=== PATIENT | male | born 1950 | race Caucasian/White ===

== ENCOUNTER 2020-11-13 09:11 | Inpatient (IN) ==
[2020-11-13] MEDS ORDERED: hydrALAZINE 25 MG TABLET PO ONE (10:29)
--- NOTE | 2020-11-13 10:32 | Emergency Department Note ---
HPI General Chief complaint: Blood Pressure Problem Stated complaint: blood pressure issue Time Seen by Provider: 11/13/20 10:15 Source: patient Mode of arrival: ambulatory Limitations: no limitations History of Present Illness HPI Narrative: Narrative: Presents to room T8 for evaluation of headache with elevated blood pressure. The patient reports that he was not diagnosed with hypertension until he recently had a procedure for hiatal hernia. He states post procedure he was noted to have elevated blood pressure and he was placed on amlodipine. He states approximately 1 month ago his PCP told him he no longer needed to take the medication as his blood pressure was well controlled. The patient did record elevated blood pressure approximately 2 to 3 weeks ago but denied any symptoms associated with it at that time. He states over the last 3 days he has had a moderate diffuse dull headache. He states this is not the worst headache of his life. This is not thunderclap onset. He denies any visual changes. He denies any strokelike symptoms. No weakness, no numbness, no loss of coordination or gait disturbance. He denies any chest pain or shortness of breath. No nausea or vomiting. No abdominal pain. No hematuria or flank pain. Symptoms are constant. He denies any exacerbating or allevia ting factors. Related Data Home Medications Medication Instructions Recorded Confirmed clobetasol 0.05 % topical ointment TOPICAL 30 Days #60 02/20/17 10/23/20 cetirizine 10 mg tablet 10 mg PO QDAY PRN 08/10/20 10/23/20 famotidine 20 mg tablet 20 mg PO QDAY 08/10/20 10/23/20 pravastatin 20 mg tablet 20 mg PO QDAY tab 08/10/20 10/23/20 fluocinonide 0.05 % topical TOPICAL 09/19/20 10/23/20 ointment fluticasone propionate 50 2 spray INTRANASAL QDAY g 09/19/20 10/23/20 mcg/actuation nasal spray,suspension ketoconazole 2 % shampoo TOPICAL 09/19/20 10/23/20 Allergies Allergy/AdvReac Type Severity Reaction Status Date / Time Banana Allergy Intermediate Vomiting Verified 11/13/20 09:15 Review of Systems ROS ROS Narrative: Narrative: All systems ED: reviewed and negative except as stated. PFSH Narrative Patient History Narrative: Narrative: Medical/Surgical/Family History All Active Problems (Updated 11/13/20 @ 13:12 by Doug Tan MD) Hypertensive emergency (Acute) Headache (Acute) Cough (Acute) Paraesophageal hernia (Acute) Advanced directives, counseling/discussion (Acute) Medicare welcome visit (Acute) History of esophagogastroduodenoscopy (Chronic ~04/17/20) GERD (gastroesophageal reflux disease) (Chronic) Viral URI with cough (Chronic) B12 deficiency (Chronic) Encounter for Health Maintenance Examination in Adult (Chronic) Limb pain (Chronic) Osteoarthritis (Chronic 11/04/14) Mitral valve regurgitation (Chronic) Hyperlipidemia (Chronic) Inguinal hernia (Chronic) Hearing loss (Chronic) Endocarditis (Chronic) Personal history of colonic polyps (Chronic 07/01/08) Blindness of right eye (Chronic) Pneumonia (Chronic) GERD (gastroesophageal reflux disease) (Chronic) Medical History Advanced directives, counseling/discussion Blindness of right eye right eye blindness & surgery - old trauma Cough Endocarditis 03/18/05--[facility]--mitral valve repair with a sliding leaflet reattachment & a 28 Josh annulpalsty ring. Echo 04/30/05; Echo repeated 11/27/06 with no major changes noted; Echo repeated 01/18/08--stable--Dr. Schmitt. GERD (gastroesophageal reflux disease) GERD (gastroesophageal reflux disease) Hearing loss Bilateral hearing aids. History of tobacco use 1960 Chewing--discontinuation approximately 2005. Hyperlipidemia Diet and Lipitor. Inguinal hernia 11/2009--Left inguinal hernia repair--Dr. Garay. Previous hernia surgery 1974. Limb pain 06/2010--Right knee/leg vague aching/swelling--negative venous doppler. Swelling probably secondary to previous Zarate's cyst. Medicare welcome visit Mitral valve regurgitation endocarditis 205,robotic valve replacement, echo 2013 Osteoarthritis (11/04/14) Paraesophageal hernia Personal history of colonic polyps (07/01/08) 07/01/08--Dr. Cottrell--NO POLYPS--normal colon; flat prostate. 10-year sequence. Pneumonia Psoriasis 07/2011 Rash over left leg appearing psoriasis-like--Lidex Cream. 2006-- eczema eruption over knees; several other nonspecific lesions frozen through Dr. Ravi. Surgical History History of appendectomy 1974 History of colonoscopy (07/01/08) 07/01/08--Dr. Cottrell--NO POLYPS--normal colon; flat prostate. 10-year sequence. History of esophagogastroduodenoscopy (~04/17/20) History of eye surgery Right eye blindness-old trauma. History of inguinal hernia repair 11/2009--left inguinal hernia repair--Dr. Garay. Previous hernia surgery 1974. History of knee surgery 1974 History of mitral valve replacement (03/18/05) mitral regurgitationswith endocarditis, post repair with a sliding leaflet re-attachment and a 28 josh annuloplasty ring. Echo 04/30/05. No eviden ce of coronary disease by catheterization with normal left ventricular systolic function. Postoperative atrial fibrillation which resolved without recurrence. Family History Unknown Essential hypertension Seizures Tuberculosis, pulmonary Brother Acute myocardial infarction 2 brothers of [place] at age 56 & 62 and sister mid-60's Sister Acute myocardial infarction Social History Smoking Status: Former smoker Alcohol Intake Frequency: a few times a week Substance Use: does not use Exam Narrative Narrative: Narrative: General Limitations: no limitations General appearance: Present alert and in no apparent distress Head Head: Present atraumatic, normocephalic and normal inspection Eye Eye: Present normal appearance, PERRL and EOMI; Absent conjunctival injection ENT ENT: Present normal exam and mucous membranes moist Neck Neck: Present normal inspection and trachea midline Respiratory Respiratory: Present normal lung sounds bilaterally; Absent respiratory distress Cardiovascular Cardiovascular: Present regular rate, normal rhythm and normal heart sounds Adbominal Abdominal: Present soft; Absent distention, tenderness, guarding and rebound Extremities Extremities: Present normal inspection; Absent tenderness Back Back: Present normal inspection; Absent tenderness Neurological Neurological: Present alert, oriented X3 and CN II-XII intact; Absent motor sensory deficit Psychiatric Psychiatric: Present normal affect and normal mood Skin Skin: Present warm (WNL) and dry; Absent rash Course Vital Signs Vital signs: Vital Signs Temperature 97.4 F 11/13/20 09:12 Pulse Rate 71 11/13/20 09:12 Respiratory Rate 16 11/13/20 09:12 Blood Pressure 193/104 11/13/20 09:12 Pulse Oximetry (%) 98 11/13/20 09:12 Temperature 97.4 F 11/13/20 09:12 Pulse Rate 75 11/13/20 12:41 Respiratory Rate 24 H 11/13/20 12:41 Blood Pressure 181/102 11/13/20 12:30 Pulse Oximetry (%) 97 11/13/20 12:41 MDM MDM Narrative Medical decision making narrative: Narrative: Lab Data Result diagrams: 11/13/20 11:00 11/13/20 11:00 Labs: Lab Results 11/13/20 11/13/20 11/13/20 Range/Units 11:00 11:00 11:00 WBC 6.3 (4.5-11.0) K/mcL RBC 4.86 (4.50-5.90) M/mcL Hgb 15.5 (13.5-16.5) g/dL Hct 45.0 (41.0-55.0) % MCV 92.6 (80.0-100.0) fL MCH 31.9 (26.0-34.0) pg MCHC 34.4 (31.0-36.0) g/dL RDW 12.6 (11.5-14.5) % Plt Count 276 (140-440) K/mcL MPV 10.8 H (7.4-10.4) fL Neut % (Auto) 81.3 H (38.0-78.0) % Lymph % (Auto) 9.9 L (15.0-49.0) % [place] % (Auto) 8.4 (1.0-12.0) % Eos % (Auto) 0.2 (0.0-7.0) % Baso % (Auto) 0.2 (0.0-2.0) % Lymph # (Auto) 0.62 L (1.50-4.80) K/mcL [place] # (Auto) 0.53 (0.10-0.90) K/mcL Eos # (Auto) 0.01 (0.00-0.70) K/mcL Baso # (Auto) 0.01 (0.00-0.20) K/mcL Absolute Neutrophils 5.12 (1.80-8.00) K/mcL Sodium 131 L (133-145) mmol/L Potassium 3.5 (3.3-5.1) mmol/L Chloride 95 L (96-108) mmol/L Carbon Dioxide 26 (22-30) mmol/L Anion Gap 10.0 (8.0-16.0) BUN 14 (8-23) mg/dL Creatinine 0.9 (0.7-1.2) mg/dL GFR Calculation 86 Glucose 104 (70-105) mg/dL Calcium 9.5 (8.6-10.4) mg/dL Total Bilirubin 0.6 (0.1-1.0) mg/dL AST 14 (<40) U/L ALT 13 (<40) U/L Alkaline Phosphatase 84 (39-117) U/L Troponin T < 0.01 (<0.03) ng/mL Total Protein 7.4 (5.9-8.4) gm/dL Albumin 4.3 (3.2-5.2) gm/dL Globulin 3.1 (2.2-3.7) gm/dL Albumin/Globulin Ratio 1.4 (1.0-2.3) Radiology Data Radiology results reviewed: Yes I reviewed the patient's radiology results. 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 This time is excluding time spent on separately billable procedures. Patient presents for evaluation of symptomatic headache with hypertension. 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 CT scan of the head shows no evidence of intracranial hemorrhage. The patient's labs are otherwise unremarkable. EKG is normal. Chest x-ray is unremarkable. The patient was initially treated with oral hydralazine however there was no significant improvement in symptoms or blood pressure. The patient received 2 sequential doses of labetalol IV again with no significant symptomatic or blood pressure improvement. This time the patient was started on a nicardipine drip. I discussed the case with the admitting hospitalist, Dr. Sloan. Discharge Plan Patient/Caregiver Discharge Instructions Pt seen by COMMUNITY SPORTS COORDINATOR/PA only: No Clinical Impression: Hypertensive emergency, Headache Patient Disposition: Xfer As Inpt ([facility]) Follow up with: Juan Ramon Arana MD, FAAFP [Primary Care Provider] - Prescriptions: No Action fluticasone furoate-vilanterol [Breo Ellipta] 100-25 mcg/dose blister with device RF: 0 pravastatin 20 mg tablet 20 mg PO QDAY RF: 0 cetirizine [All Day Allergy (cetirizine)] 10 mg tablet 10 mg PO QDAY PRNRF: 0 famotidine [Acid Hotel Or Motel Manager (famotidine)] 20 mg tablet 20 mg PO QDAY RF: 0 ketoconazole 2 % shampoo topical RF: 0 fluocinonide 0.05 % ointment topical RF: 0 fluticasone propionate 50 mcg/actuation spray,suspension 2 spray intranasal QDAY RF: 0 clobetasol 0.05 ointment TOPICAL 30 Days Qty: 60 RF: 0
--- NOTE | 2020-11-13 11:01 | XRay Report ---
HISTORY: Former smoker, hypertension urgency FINDINGS: Small streaky opacities are present at the left lung base adjacent to the diaphragm. These are unchanged from the recent CT done on 10/20/20, but were not present in 02/10/19. This could be interstitial fibrosis or inflammation. The lungs are otherwise clear and normally expanded. There is no evidence of pneumonia, emphysema and pulmonary mass. The heart is normal in size and contour. The mediastinum, alejandra and pulmonary vasculature are normal. IMPRESSION: Stable mild fibrosis or discoid atelectasis in the basilar segments left lower lobe. Interpreted and Authenticated by: Sam Zaragoza 11/13/20
--- NOTE | 2020-11-13 11:09 | Cat Scan Report ---
History: Hypertension urgency with headaches TECHNIQUE: The brain was imaged without contrast at 2.5 mm intervals. The radiation exposure was limited using dose reduction technology. FINDINGS: There is no intracranial hemorrhage, edema, infarct or mass effect. There is a prominent perivascular space along the inferior border left basal ganglia. The ventricles are normal in size. There is no abnormal extra-axial fluid collection. The right orbital globe is shrunken and partially calcified. This may be from previous injury. 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 Tan was called with the report Interpreted and Authenticated by: Sam Zaragoza 11/13/20
[2020-11-13] MEDS ORDERED: LABETALOL 5 MG/ML ML IV ONE ×2 (11:39→12:12)
[2020-11-13 11:45] LABS: Basophils # (Auto) 0.01 K/mcL (0.00-0.20); Basophils % (Auto) 0.2 % (0.0-2.0); Eosinophils # (Auto) 0.01 K/mcL (0.00-0.70); Eosinophils % (Auto) 0.2 % (0.0-7.0); Hemoglobin 15.5 g/dL (13.5-16.5); Lymphocytes # (Auto) 0.62 K/mcL (1.50-4.80); Lymphocytes % (Auto) 9.9 % (15.0-49.0); Mean Cell Volume 92.6 fL (80.0-100.0); Mean Corpuscular HGB Conc 34.4 g/dL (31.0-36.0); Mean Platelet Volume 10.8 fL (7.4-10.4); Monocytes # (Auto) 0.53 K/mcL (0.10-0.90); Monocytes % (Auto) 8.4 % (1.0-12.0); Neutrophils % (Auto) 81.3 % (38.0-78.0); Platelet Count 276 K/mcL (140-440); RBC 4.86 M/mcL (4.50-5.90); Red Cell Distribution Width 12.6 % (11.5-14.5); WBC 6.3 K/mcL (4.5-11.0)
[2020-11-13 12:02] LABS: ALT/SGPT 13 U/L (<40); AST/SGOT 14 U/L (<40); Albumin 4.3 gm/dL (3.2-5.2); Albumin/Globulin Ratio 1.4 (1.0-2.3); Alkaline Phosphatase 84 U/L (39-117); Bilirubin,Total 0.6 mg/dL (0.1-1.0); Blood Urea Nitrogen 14 mg/dL (8-23); Calcium 9.5 mg/dL (8.6-10.4); Carbon Dioxide 26 mmol/L (22-30); Chloride 95 mmol/L (96-108); Globulin 3.1 gm/dL (2.2-3.7); Glomerular Filtration Rate 86; Glucose 104 mg/dL (70-105)
--- NOTE | 2020-11-13 13:13 | Internal Med History&Physical ---
HPI History of Present Illness Patient information: Note initiated : 11/13/20 at 1:08 pm Service Date, if different from initiated Date: [] Patient: Junior Watkins a 69 y/o M admitted on for blood pressure issue. Chief Complaint: [] History of present illness: Mr. Watkins is a 69 year old M The ED with headache and hypertension and episode nausea vomiting's morning. Patient was started on Norvasc 10mg in July during the work-up or treatment for hiatal hernia. About a month ago in discussion with the primary care they opted to hold Norvasc and see how he did without the medication. He checked it a while afterwards and then stopped and then 3 days ago developed a headache and started taking his blood pressure again and had a for systolic of 201 diastolic of over 100. Monitor for the next couple days and it continued to be high. He had an episode episode of nausea from this morning. In the ED he was found to be quite hypertensive and was given IV pushes of labetalol and hydralazine without effect and thus was put on a nicardipine drip. Sodium mildly low but otherwise lab unremarkable. Other vital signs stable. Patient denies vision changes chest pain or shortness of breath. Troponin was unremarkable Review of Systems: Pertinent positives as above. Denies fever/chills/chest or abdominal pain/cough/dyspnea/diarrhea. Otherwise see above. PFSH PFSH All Active Problems (Updated 11/13/20 @ 13:12 by Doug Tan MD) Hypertensive emergency (Acute) Headache (Acute) Cough (Acute) Paraesophageal hernia (Acute) Advanced directives, counseling/discussion (Acute) Medicare welcome visit (Acute) History of esophagogastroduodenoscopy (Chronic ~04/17/20) GERD (gastroesophageal reflux disease) (Chronic) Viral URI with cough (Chronic) B12 deficiency (Chronic) Encounter for Health Maintenance Examination in Adult (Chronic) Limb pain (Chronic) Osteoarthritis (Chronic 11/04/14) Mitral valve regurgitation (Chronic) Hyperlipidemia (Chronic) Inguinal hernia (Chronic) Hearing loss (Chronic) Endocarditis (Chronic) Personal history of colonic polyps (Chronic 07/01/08) Blindness of right eye (Chronic) Pneumonia (Chronic) GERD (gastroesophageal reflux disease) (Chronic) Medical History Advanced directives, counseling/discussion Blindness of right eye right eye blindness & surgery - old trauma Cough Endocarditis 03/18/05--[facility]--mitral valve repair with a sliding leaflet reattachment & a 28 Josh annulpalsty ring. Echo 04/30/05; Echo repeated 11/27/06 with no major changes noted; Echo repeated 01/18/08--stable--Dr. Schmitt. GERD (gastroesophageal reflux disease) GERD (gastroesophageal reflux disease) Hearing loss Bilateral hearing aids. History of tobacco use 1960 Chewing--discontinuation approximately 2005. Hyperlipidemia Diet and Lipitor. Inguinal hernia 11/2009--Left inguinal hernia repair--Dr. Garay. Previous hernia surgery 1974. Limb pain 06/2010--Right knee/leg vague aching/swelling--negative venous doppler. Swelling probably secondary to previous Zarate's cyst. Medicare welcome visit Mitral valve regurgitation endocarditis 205,robotic valve replacement, echo 2013 Osteoarthritis (11/04/14) Paraesophageal hernia Personal history of colonic polyps (07/01/08) 07/01/08--Dr. Cottrell--NO POLYPS--normal colon; flat prostate. 10-year sequence. Pneumonia Psoriasis 07/2011 Rash over left leg appearing psoriasis-like--Lidex Cream. 2006-- eczema eruption over knees; several other nonspecific lesions frozen through Dr. Ravi. Surgical History History of appendectomy 1974 History of colonoscopy (07/01/08) 07/01/08--Dr. Cottrell--NO POLYPS--normal colon; flat prostate. 10-year sequence. History of esophagogastroduodenoscopy (~04/17/20) History of eye surgery Right eye blindness-old trauma. History of inguinal hernia repair 11/2009--left inguinal hernia repair--Dr. Garay. Previous hernia surgery 1974. History of knee surgery 1974 History of mitral valve replacement (03/18/05) mitral regurgitationswith endocarditis, post repair with a sliding leaflet re-attachment and a 28 josh annuloplasty ring. Echo 04/30/05. No evidence of coronary disease by catheterization with normal left ventricular systolic function. Postoperative atrial fibrillation which resolved without recurrence. 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 alcohol intake frequency: a few times a week substance use type: does not use MEDS/ALLERGIES Home Medications and Allergies Home Medications Medication Instructions Recorded Confirmed Type clobetasol 0.05 % topical ointment TOPICAL 30 Days #60 02/20/17 10/23/20 History cetirizine 10 mg tablet 10 mg PO QDAY PRN 08/10/20 10/23/20 History famotidine 20 mg tablet 20 mg PO QDAY 08/10/20 10/23/20 History pravastatin 20 mg tablet 20 mg PO QDAY tab 08/10/20 10/23/20 History fluocinonide 0.05 % topical TOPICAL 09/19/20 10/23/20 History ointment fluticasone propionate 50 2 spray INTRANASAL QDAY g 09/19/20 10/23/20 History mcg/actuation nasal spray,suspension ketoconazole 2 % shampoo TOPICAL 09/19/20 10/23/20 History Allergies Allergy/AdvReac Type Severity Reaction Status Date / Time Banana Allergy Intermediate Vomiting Verified 11/13/20 09:15 EXAM Constitutional Vitals: Temp Pulse Resp BP Pulse Ox 97.4 F 75 24 H 181/102 97 11/13/20 09:12 11/13/20 12:41 11/13/20 12:41 11/13/20 12:30 11/13/20 12:41 Exam: General: Alert, Awake, No acute Distress Eyes/N/T: EOMI, PERRL, Head/Neck: neck supple, normocephalic atraumatic CV: RRR, No murmurs, normal s1/s2 Pulm: Clear b/l, no wheezing/rhonchi/rales Abd: soft, nontender, +BS x4 Ext: no clubbing/cyanosis/edema Neuro: Alert, no focal deficits, moves all extremities, CN 2-12 grossly intact, symmetrical strength b/l upper/lower, sensations intact b/l upper/lower Skin: warm/dry DATA Data Completed and Pending Labs: Labs from last 24 hours 11/13/20 11/13/20 11/13/20 11:00 11:00 11:00 WBC 6.3 RBC 4.86 Hgb 15.5 Hct 45.0 MCV 92.6 MCH 31.9 MCHC 34.4 RDW 12.6 Plt Count 276 MPV 10.8 H Neut % (Auto) 81.3 H Lymph % (Auto) 9.9 L [place] % (Auto) 8.4 Eos % (Auto) 0.2 Baso % (Auto) 0.2 Lymph # (Auto) 0.62 L [place] # (Auto) 0.53 Eos # (Auto) 0.01 Baso # (Auto) 0.01 Absolute Neutrophils 5.12 Sodium 131 L Potassium 3.5 Chloride 95 L Carbon Dioxide 26 Anion Gap 10.0 BUN 14 Creatinine 0.9 GFR Calculation 86 Glucose 104 Calcium 9.5 Total Bilirubin 0.6 AST 14 ALT 13 Alkaline Phosphatase 84 Troponin T < 0.01 Total Protein 7.4 Albumin 4.3 Globulin 3.1 Albumin/Globulin Ratio 1.4 A/P Narrative A/P Narrative: A: *Hypertensive urgency: -Started on nicardipine drip in ED *Hyponatremia, mild: *GERD: * P: -Cardene drip overnight and transition to oral Norvasc in the morning -f/u sodium -ppx: Lovenox/home PPI Full code Time Spent With Patient Time: Total time spent is greater than 50% in coordination of care (as documented) at patient's floor/unit and/or counseling patient:
[2020-11-13] MEDS ORDERED: niCARdipine 25 MG in 0.9 % SODIUM CHLORIDE 240 ML IV SCH (13:15)
[2020-11-13] MEDS ORDERED: KETOROLAC 30 MG/ML VIAL IV ONE (14:17)
--- NOTE | 2020-11-13 14:24 | EKG ---
[facility] Test Date: 2020-11-13 Pat Name: Junior Watkins Department: ED Room: Gender: Male Server Assistant: : 1950 Requested By: Doug Tan Order Number: [id number] Reading MD: Roldan Quezada M.D. Measurements Intervals [place] Rate: 78 P: 41 [place]: 169 QRS: 55 QRSD: 103 T: 9 QT: 430 QTc: 490 Interpretive Statements Sinus rhythm Probable left atrial enlargement Inferior infarct, old Baseline wander in lead(s) V4 NO PRIOR TRACING FOR COMPARISON Electronically Signed On 11-13-2020 14:24:27 PDT by Roldan Quezada M.D. /store/M0/[id number]
[2020-11-13] MEDS: 0.9 % SODIUM CHLORIDE 250 ML IV SCH (15:00)
[2020-11-13] MEDS ORDERED: ONDANSETRON 4 MG/2 ML VIAL IV PRN (15:17)
[2020-11-13] MEDS ORDERED: ACETAMINOPHEN 325 MG TABLET PO PRN (15:17)
[2020-11-13] MEDS ORDERED: IPRATROPIUM/ALBUTEROL 3 ML AMPUL.NEB NEB PRN (15:17)
[2020-11-13] MEDS: 0.9 % SODIUM CHLORIDE 10 ML SYRINGE IV SCH ×2 (16:07→22:16)
[2020-11-13] MEDS: amLODIPine 5 MG TABLET PO SCH (17:56)
[2020-11-13] MEDS ORDERED: ACETAMINOPHEN/DIPHENHYDRAMINE 1 TABLET PO PRN (19:37)
[2020-11-13] MEDS ORDERED: ACETAMINOPHEN 500 MG TABLET PO PRN (20:58)
[2020-11-13] MEDS ORDERED: diphenhydrAMINE 25 MG CAPSULE PO PRN (20:59)
[2020-11-13] MEDS: DOCUSATE SODIUM 100 MG CAPSULE PO SCH (22:16)
[2020-11-14] MEDS: 0.9 % SODIUM CHLORIDE 250 ML IV SCH ×3 (00:55→23:58)
[2020-11-14] MEDS: 0.9 % SODIUM CHLORIDE 10 ML SYRINGE IV SCH ×3 (05:43→22:00)
[2020-11-14 06:45] LABS: Hematocrit 42.5 % (41.0-55.0); Hemoglobin 14.3 g/dL (13.5-16.5); Mean Cell Volume 92.4 fL (80.0-100.0); Mean Corpuscular HGB Conc 33.6 g/dL (31.0-36.0); Mean Platelet Volume 10.9 fL (7.4-10.4); Platelet Count 260 K/mcL (140-440); Red Cell Distribution Width 12.8 % (11.5-14.5)
[2020-11-14 07:13] LABS: ALT/SGPT 12 U/L (<40); AST/SGOT 12 U/L (<40); Albumin 3.9 gm/dL (3.2-5.2); Albumin/Globulin Ratio 1.3 (1.0-2.3); Alkaline Phosphatase 74 U/L (39-117); Bilirubin,Direct < 0.2 mg/dL (0-0.3); Bilirubin,Total 0.5 mg/dL (0.1-1.0); Blood Urea Nitrogen 13 mg/dL (8-23); Calcium 9.1 mg/dL (8.6-10.4); Carbon Dioxide 24 mmol/L (22-30); Chloride 99 mmol/L (96-108); Globulin 2.9 gm/dL (2.2-3.7); Glomerular Filtration Rate 91; Glucose 98 mg/dL (70-105); Lactate Dehydrogenase 153 U/L (135-225); Phosphorous 3.5 mg/dL (2.5-4.5); Triglycerides 97 mg/dL (<150); Uric Acid 4.4 mg/dL (2.5-8.0)
[2020-11-14] MEDS: amLODIPine 5 MG TABLET PO SCH (07:30)
[2020-11-14] MEDS ORDERED: PANTOPRAZOLE 40 MG TABLET PO SCH (07:30)
[2020-11-14] MEDS ORDERED: LABETALOL 5 MG/ML ML IV PRN (07:39)
[2020-11-14] MEDS ORDERED: hydrALAZINE 20 MG/ML VIAL IV PRN (07:39)
--- NOTE | 2020-11-14 07:40 | Internal Med Progress Note ---
SUBJECTIVE Subjective Patient information: Note initiated : 11/14/20 at 7:38 am Service Date, if different from initiated Date: [] Patient: Junior Watkins 69 y/o M admitted on 11/13/20 for blood pressure issue. Chief Complaint: [] Interval history: History of present illness: Mr. Watkins is a 69 year old M The ED with headache and hypertension and episode nausea vomiting's morning. Patient was started on Norvasc 10mg in July during the work-up or treatment for hiatal hernia. About a month ago in discussion with the primary care they opted to hold Norvasc and see how he did without the medication. He checked it a while afterwards and then stopped and then 3 days ago developed a headache and started taking his blood pressure again and had a for systolic of 201 diastolic of over 100. Monitor for the next couple days and it continued to be high. He had an episode episode of nausea from this morning. In the ED he was found to be quite hypertensive and was given IV pushes of labetalol and hydralazine without effect and thus was put on a nicardipine drip. Sodium mildly low but otherwise lab unremarkable. Other vital signs stable. Patient denies vision changes chest pain or shortness of breath. Troponin was unremarkable 11/14 Patient doing well this morning. Denies any headache this morning. Feeling better. Titrated off Cardene drip last night and now on oral Norvasc and titrating as needed. Review of Systems: denies headache/fever/chills/nausea/vomiting/chest or abdominal pain/cough/dyspnea/diarrhea. Otherwise see above. Constitutional Vitals: Vital Signs Temp Pulse Resp BP Pulse Ox 98.0 F 67 14 168/100 97 11/14/20 04:02 11/14/20 05:01 11/14/20 05:01 11/14/20 05:01 11/14/20 05:01 Period Temp Pulse Resp BP Sys/Olivarez Pulse Ox Last 24 Hr 97.4 F-98.7 F 59-86 13-25 118-193/76-127 92-100 Intake and Output 11/13/20 11/14/20 11/14/20 21:59 05:59 13:59 Intake Total 898 498 Output Total 875 Balance 23 498 Weight 81.601 kg Intake & Output: Intake & Output 11/13/20 11/14/20 11/14/20 21:59 05:59 13:59 Intake Total 898 498 Output Total 875 Balance 23 498 Weight 81.601 kg Intake: IV 118 198 Sodium Chloride 0.9% 250 ml @ 198 20 mls/hr IV .[id number] [facility] Rx#: [id number] Cardene 25 MG In Sodium 118 Chloride 0.9% 240 ml @ 5 MG/HR 50 mls/hr IV ONCE [facility] Rx#: [id number] Oral 780 300 Output: Void Amount 875 Other: Meal Dinner Percent of Meal Consumed 100% Urine Appearance Cloudy Urine Color Straw Exam: General: Alert, Awake, No acute Distress Eyes/N/T: EOMI, , Head/Neck: neck supple, CV: RRR, No murmurs, Pulm: Clear b/l, no wheezing/rhonchi/rales Abd: soft, nontender, +BS x4 Ext: no clubbing/cyanosis/edema Neuro: Alert, no focal deficits, moves all extremities, Skin: warm/dry OBJ DATA Labs CBC & Chem 7: 11/14/20 05:12 11/14/20 05:12 Labs: Abnormal Lab Results 11/14/20 11/14/20 11/13/20 05:12 05:12 11:00 MPV 10.9 H Neut % (Auto) Lymph % (Auto) Lymph # (Auto) Sodium 131 L Chloride 95 L GGT 6 L 11/13/20 11:00 MPV 10.8 H Neut % (Auto) 81.3 H Lymph % (Auto) 9.9 L Lymph # (Auto) 0.62 L Sodium Chloride GGT Meds: Medications Acetaminophen (Acetaminophen 325 Mg Tablet) 650 mg PO Q4-6HP PRN; Protocol PRN Reason: Per Pain Protocol/Fever > 101 Acetaminophen (Acetaminophen 500 Mg Tablet) 500 mg PO HSP PRN; Protocol PRN Reason: Sleep Last Admin: 11/13/20 22:16 Dose: 500 mg Documented by: Albuterol/Ipratropium (Ipratropium/Albuterol 3 Ml Ampul.Neb) 3 ml NEB Q4HRT PRN PRN Reason: sob Amlodipine Besylate (Amlodipine 5 Mg Tablet) 5 mg PO DAILY [facility] Last Admin: 11/14/20 07:30 Dose: 5 mg Documented by: Diphenhydramine HCl (Diphenhydramine 25 Mg Capsule) 25 mg PO HSP PRN PRN Reason: Sleep Last Admin: 11/13/20 22:16 Dose: 25 mg Documented by: Docusate Sodium (Docusate Sodium 100 Mg Capsule) 100 mg PO BID [facility] Last Admin: 11/13/20 22:16 Dose: Not Given Documented by: Enoxaparin Sodium (Enoxaparin 40 Mg/0.4 Ml Syringe) 40 mg SQ DAILY [facility] Last Admin: 11/14/20 07:30 Dose: 40 mg Documented by: Nicardipine HCl 25 mg/ Sodium (Chloride) 250 mls @ 50 mls/hr IV Q12H [facility]; Protocol Sodium Chloride (Sodium Chloride 0.9%) 250 mls @ 20 mls/hr IV .[id number] [facility] Last Admin: 11/14/20 00:55 Dose: 20 mls/hr Documented by: Ondansetron HCl (Ondansetron 4 Mg/2 Ml Vial) 4 mg IV Q4-6HP PRN PRN Reason: Nausea And Vomiting Pantoprazole Sodium (Pantoprazole 40 Mg Tablet) 40 mg PO QAMAC [facility] Last Admin: 11/14/20 07:23 Dose: 40 mg Documented by: Sodium Chloride (0.9 % Sodium Chloride 10 Ml Syringe) 10 ml IV Q8 [facility] Last Admin: 11/14/20 05:43 Dose: 10 ml Documented by: A/P Narrative A/P Narrative: A: *Hypertensive urgency: -Started on nicardipine drip in ED, now off *Hyponatremia, mild: resolved *GERD: * P: -transitioned to oral Norvasc (titrate) -ppx: Lovenox/home PPI Full code Time Spent With Patient Time: Total time spent is greater than 50% in coordination of care (as docume phoebeed) at patient's floor/unit and/or counseling patient: QUALITY VTE Deep Vein Thrombosis/Pulmonary Embolism Present on Admission: No
[2020-11-14] MEDS: DOCUSATE SODIUM 100 MG CAPSULE PO SCH ×2 (08:04→21:28)
[2020-11-14] MEDS ORDERED: niCARdipine 25 MG in 0.9 % SODIUM CHLORIDE 240 ML IV SCH (09:00)
[2020-11-14] MEDS ORDERED: ENOXAPARIN 40 MG/0.4 ML SYRINGE SQ SCH (09:00)
[2020-11-14] MEDS ORDERED: amLODIPine 5 MG TABLET PO ONE ×3 (10:08→19:59)
[2020-11-14] MEDS ORDERED: diphenhydrAMINE 25 MG CAPSULE PO PRN (10:19)
[2020-11-14] MEDS ORDERED: ACETAMINOPHEN 325 MG TABLET PO PRN (10:19)
[2020-11-14] MEDS ORDERED: ONDANSETRON 4 MG/2 ML VIAL IV PRN (10:19)
[2020-11-14] MEDS ORDERED: ACETAMINOPHEN 500 MG TABLET PO PRN (10:19)
[2020-11-14] MEDS ORDERED: IPRATROPIUM/ALBUTEROL 3 ML AMPUL.NEB NEB PRN (10:19)
--- NOTE | 2020-11-14 10:45 | Discharge Summary ---
Discharge Provider Provider Patient information: Note initiated : 11/14/20 at 10:44 am Service Date, if different from initiated Date: [] Patient: Junior Watkins 69 y/o M admitted on 11/13/20 for blood pressure issue. Chief Complaint: [] Date of admission: 11/13/20 14:35 Discharge date: 11/15/20 Primary care physician: Juan Ramon Arana M.D., F.A.A.F.P. Consults: 11/13/20 12:54 Consult to Physician [CONS] Stat Comment: Consulting Provider: Jorge Sloan Reason For Exam: Physician to Consult Discharge Meds Discharge Medications Home Medications clobetasol 0.05 % topical ointment 1 applic TOPICAL 3XW 30 Days #60 02/20/17 [History Confirmed 11/13/20 Last Taken Unknown] cetirizine 10 mg tablet 10 mg PO QDAY 08/10/20 [History Confirmed 11/13/20 Last Taken 11/12/20 08:00] famotidine 20 mg tablet 20 mg PO QDAY 08/10/20 [History Confirmed 11/13/20 Last Taken 11/12/20 08:00] pravastatin 20 mg tablet 20 mg PO QDAY tab 08/10/20 [History Confirmed 11/13/20 Last Taken Unknown] fluticasone propionate 50 mcg/actuation nasal spray,suspension 2 spray INTRANASAL QDAY g 09/19/20 [History Confirmed 11/13/20 Last Taken Unknown] ketoconazole 2 % shampoo 1 applic TOPICAL PRN PRN 09/19/20 [History Confirmed 11/13/20 Last Taken Unknown] amlodipine 10 mg PO DAILY 11/13/20 [History Confirmed 11/13/20 Last Taken 10/23/20 08:00] COURSE Hospital Course Hospital course: The ED with headache and hypertension and episode nausea vomiting's morning. Patient was started on Norvasc 10mg in July during the work-up or treatment for hiatal hernia. About a month ago in discussion with the primary care they opted to hold Norvasc and see how he did without the medication. He checked it a while afterwards and then stopped and then 3 days ago developed a headache and started taking his blood pressure again and had a for systolic of 201 diastolic of over 100. Monitor for the next couple days and it continued to be high. He had an episode episode of nausea from this morning. In the ED he was found to be quite hypertensive and was given IV pushes of labetalol and hydralazine without effect and thus was put on a nicardipine drip. Sodium mildly low but otherwise lab unremarkable. Other vital signs stable. Patient denies vision changes chest pain or shortness of breath. Troponin was unremarkable 11/14 Patient doing well this morning. Denies any headache this morning. Feeling better. Titrated off Cardene drip last night and now on oral Norvasc and titrating as needed. 11/15 Improved on restarting his home medication. Still may need some titration. Did have a headache last night but was not associated with hypertension. A: *Hypertensive urgency: *Hyponatremia, mild: resolved *GERD: * Discharge diagnosis: Hypertensive urgency hyponatremia Secondary discharge diagnosis: gerd Time Spent with Patient Time attestation: Total time spent providing and/or coordinating discharge services: EXAM Constitutional Vitals: Temp Pulse Resp BP Pulse Ox 98.0 F 83 10 L 148/125 96 11/14/20 04:02 11/14/20 10:01 11/14/20 10:01 11/14/20 10:11/14/20 10:01 Discharge Data Data Completed and Pending Labs on day of discharge: Labs from last 24 hours 11/14/20 11/14/20 11/13/20 05:12 05:12 11:00 WBC 5.0 RBC 4.60 Hgb 14.3 Hct 42.5 MCV 92.4 MCH 31.1 MCHC 33.6 RDW 12.8 Plt Count 260 MPV 10.9 H Neut % (Auto) Lymph % (Auto) [place] % (Auto) Eos % (Auto) Baso % (Auto) Lymph # (Auto) [place] # (Auto) Eos # (Auto) Baso # (Auto) Absolute Neutrophils Sodium 136 Potassium 3.4 Chloride 99 Carbon Dioxide 24 Anion Gap 13.0 BUN 13 Creatinine 0.8 GFR Calculation 91 Glucose 98 Uric Acid 4.4 Calcium 9.1 Phosphorus 3.5 Magnesium 2.2 Total Bilirubin 0.5 Direct Bilirubin < 0.2 GGT 6 L AST 12 ALT 12 Alkaline Phosphatase 74 Lactate Dehydrogenase 153 Troponin T < 0.01 Total Protein 6.8 Albumin 3.9 Globulin 2.9 Albumin/Globulin Ratio 1.3 Triglycerides 97 11/13/20 11/13/20 11:00 11:00 WBC 6.3 RBC 4.86 Hgb 15.5 Hct 45.0 MCV 92.6 MCH 31.9 MCHC 34.4 RDW 12.6 Plt Count 276 MPV 10.8 H Neut % (Auto) 81.3 H Lymph % (Auto) 9.9 L [place] % (Auto) 8.4 Eos % (Auto) 0.2 Baso % (Auto) 0.2 Lymph # (Auto) 0.62 L [place] # (Auto) 0.53 Eos # (Auto) 0.01 Baso # (Auto) 0.01 Absolute Neutrophils 5.12 Sodium 131 L Potassium 3.5 Chloride 95 L Carbon Dioxide 26 Anion Gap 10.0 BUN 14 Creatinine 0.9 GFR Calculation 86 Glucose 104 Uric Acid Calcium 9.5 Phosphorus Magnesium Total Bilirubin 0.6 Direct Bilirubin GGT AST 14 ALT 13 Alkaline Phosphatase 84 Lactate Dehydrogenase Troponin T Total Protein 7.4 Albumin 4.3 Globulin 3.1 Albumin/Globulin Ratio 1.4 Triglycerides Discharge Plan Patient/Caregiver Discharge Instructions Activity: increase activity as tolerated Diet: Regular Diet Prescriptions: Continued pravastatin 20 mg tablet 20 mg PO QDAY RF: 0 cetirizine [All Day Allergy (cetirizine)] 10 mg tablet 10 mg PO QDAY RF: 0 famotidine [Acid [employer] (famotidine)] 20 mg tablet 20 mg PO QDAY RF: 0 ketoconazole 2 % shampoo 1 applic topical PRN PRN (Reason: Dry Skin) RF: 0 fluticasone propionate 50 mcg/actuation spray,suspension 2 spray intranasal QDAY RF: 0 amlodipine 10 mg tablet 10 mg PO DAILY RF: 0 No Action clobetasol 0.05 ointment 1 applic TOPICAL 3XW 30 Days Qty: 60 RF: 0 Follow Up Plan Follow up with: Juan Ramon Arana MD, FAAFP [Primary Care Provider] - Patient Disposition: Home, Self-Care Prognosis: Fair Overall status at discharge: patient is progressing back to baseline Discharge Orders: Discharge Order (Routine); Ordered 11/15/20 Ordered By: Jorge Sloan [facility] VTE Deep Vein Thrombosis/Pulmonary Embolism Present on Admission: No
[2020-11-14] MEDS: hydrALAZINE 20 MG/ML VIAL IV PRN ×2 (18:02→20:02)
[2020-11-14] MEDS: LABETALOL 5 MG/ML ML IV PRN ×2 (19:04→22:14)
[2020-11-14] MEDS ORDERED: SENNOSIDES 1 TABLET PO ONE (20:01)
[2020-11-14] MEDS ORDERED: POLYETHYLENE GLYCOL 3350 17 GM PACKET PO ONE (20:09)
[2020-11-14] MEDS ORDERED: niCARdipine 25 MG in 0.9 % SODIUM CHLORIDE 240 ML IV PRN (21:00)
[2020-11-15] MEDS ORDERED: HYDROcodone/APAP 5/325MG TABLET PO PRN (03:38)
[2020-11-15] MEDS ORDERED: KETOROLAC 15 MG/ML VIAL IV ONE (03:39)
[2020-11-15] MEDS ORDERED: KETOROLAC 15 MG/ML VIAL ONE (04:16)
[2020-11-15] MEDS: 0.9 % SODIUM CHLORIDE 10 ML SYRINGE IV SCH (04:21)
[2020-11-15] MEDS ORDERED: PANTOPRAZOLE 40 MG TABLET PO SCH (07:30)
[2020-11-15] MEDS: DOCUSATE SODIUM 100 MG CAPSULE PO SCH (08:45)
[2020-11-15] MEDS ORDERED: amLODIPine 5 MG TABLET PO SCH ×2 (09:00)
[2020-11-15] MEDS ORDERED: ENOXAPARIN 40 MG/0.4 ML SYRINGE SQ SCH (09:00)
[2020-11-15] MEDS ORDERED: ACETAMINOPHEN 500 MG TABLET PO PRN (21:00)
== END 2020-11-15 14:00 | disposition home or self-care (01) | DRG 305 ==
LOC: ED 09:11 → ICU 14:35 → MEDSUR 11-14 16:06
PROVIDERS: ADMIT Internal Medicine; ATTEND Internal Medicine